=== PATIENT | male | born 1990 | race African-American/Black ===

== ENCOUNTER 2018-11-29 23:13 | Emergency (ER) | payer SELFPAY ==
[~2018-11-29] VITALS: Ht 177.8 cm; Wt 88.0 kg
[2018-11-29 23:20] VITALS: BP 150/93; PULSE 143; RESP 20; Ht 177.8 cm; Wt 88.0 kg
--- NOTE | 2018-11-30 02:19 | ERD ---
ER Documentation Chief Complaint Chief Complaint diff urinating and erection; prefers female MD; admits smoke marijuana HPI 28-year-old male, presents to the emergency department, complaining of feeling tired and requesting a place to rest. In regards to the chief complaint he denies dysuria, no ED, no abdominal pain, no fever, no chills. The patient denies suicidal or homicidal ideation, denies visual or auditory hallucinations. ROS All systems reviewed and are negative except as per history of present illness. PMhx/Soc Medical and Surgical Hx: pt denies Medical Hx, pt denies Surgical Hx FmHx Family History: No diabetes, No coronary disease Physical Exam Vitals Vital Signs Date Temp Pulse Resp B/P (MAP) Pulse Ox O2 O2 Flow FiO2 Time Delivery Rate 11/29/18 99.0 143 20 150/93 100 23:20 (112) Physical Exam Const: No acute distress Head: Atraumatic Eyes: Normal Conjunctiva ENT: Normal External Ears, Nose and Mouth. Neck: Full range of motion. No meningismus. Resp: Clear to auscultation bilaterally Cardio: Regular rate and rhythm, no murmurs Abd: Soft, non tender, non distended. Normal bowel sounds Skin: No petechiae or rashes Back: No midline or flank tenderness Ext: No cyanosis, or edema Neur: Awake and alert Psych: Normal Mood and Affect Procedures/MDM At the time of discharge, vital signs stable, patient nontoxic, physical examination unremarkable. Low suspicion for acute infection or acute emergent condition. During the ED course the patient remained stable, no new complaints. Clinical impression discussed with the patient who agrees with management. The patient is stable to be treated outpatient and will be discharged home. Follow up with the primary care provider in the next 48h has been recommended. If symptoms persist, worsen or new symptoms develop, then patient should return to the ED immediately. Instructions explained and given directly by me to the patient with ack nowledgment and demonstrated understanding. Disclaimer: Inadvertent spelling and grammatical errors are likely due to EHR/dictation software use and do not reflect on the overall quality of patient care. Also, please note that the electronic time recorded on this note does not necessarily reflect the actual time of the patient encounter. Departure Diagnosis: Primary Impression: Multiple complaints Condition: Stable Additional Instructions: Thank you very much for allowing us to participate in your care. Your health and safety is our top priority at [facility]. Call your primary care doctor TOMORROW for an appointment during the next 2-4 days and bring all the information provided. Have prescriptions filled and follow precisely the directions on the label. If the symptoms get worse and your provider is unavailable, return to the Emergency Department immediately. CATHERINE FLORENTINO MD November 30, 2018 02:19
== END 2018-11-30 02:40 | disposition home or self-care (01) ==
LOC: EDBD 23:13 → FTE 23:13
DX: R39.198 Other difficulties with micturition (principal)
CPT/HCPCS: 99282